=== PATIENT | male | born 1970 | race Caucasian/White ===

== ENCOUNTER 2024-04-03 14:31 | Emergency (ER) | payer OTHER, SELFPAY ==
[2024-04-03 14:36] VITALS: BP 175/108
--- NOTE | 2024-04-03 15:02 | ED.GENMED ---
History of Present Illness
General
Chief Complaint: Abnormal Lab Value
Source: patient
Time Seen by Provider: 04/03/24 14:52
Travel History
Have you had any contact with someone who has COVID-19?: No
Do you have any symptoms of coronavirus? Fever > 100 degrees, chills, cough, shortness of breath, sore throat, loss of taste or smell, muscle aches, or headache?: No
History of Present Illness
History of Present Illness:
53-year-old male presents to the emergency room after being referred here from an urgent care. 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 While there he patient was noted to have a rapid heart rate. Patient denies any
chest pain, shortness of breath, nausea, vomiting. He is not aware of the rapid heart rate. Patient was feeling perfectly himself prior to going to the urgent care. Patient does endorse having anxiety. In he is nervous about getting his license
approved. Patient does have a history of hypertension and diabetes but has been compliant with his medications.
Phy Exam
Physical Exam
Physical Exam:
General: Awake, Alert, Oriented X3. No acute distress, slightly anxious
Vitals: Tachycardic
Head: Atraumatic
Eyes: Pupils equal, EOMI
Throat: Airway intact, no exudates
Neck: Trachea midline
Lungs: Clear and equal b/l
Heart: Regular rate, no murmurs
Abd: Soft, Nontender, No pulsatile mass
Neuro: Nonfocal
Skin: Warm, dry, no rash
Extremities: pulses equal b/l, no edema
Course
Orders/Labs/Results
Orders:
Orders
04/03/24 14:32
EKG [Electrocardiogram (*1)] Urgent
Reason for Study: Tachycardia
EKG- Treatment ONCE
04/03/24 15:22
Complete Blood Count/With Diff Urgent
Comprehensive Metabolic Panel Urgent
TSH Reflex To Free T4 Urgent
04/03/24 17:40
0.9% Sodium Chloride 500 ml [Nss] 500 ml IV BOLUS
Abnormal Lab Results
04/03/24
15:22
WBC 10.9 H 10^3/uL
(4.8-10.8)
Absolute Neuts (auto) 8.4 H 10^3/uL
(1.4-6.5)
Absolute Monos (auto) 0.7 H 10^3/uL
(0.1-0.6)
Neutrophils % 77.0 H %
(42.2-75.2)
Lymphocytes % 15.2 L %
(20.5-51.1)
Chloride 97 L mmol/L
(98-107)
Glucose 222 H mg/dl
(70-99)
04/03/24 15:22
04/03/24 15:22
Vital Signs
Initial and Last Documented VS:
Initial Vital Signs
Temp Pulse Resp BP Pulse Ox
98.1 F 132 18 175/108 98
04/03/24 14:36 04/03/24 14:36 04/03/24 14:36 04/03/24 14:36 04/03/24 14:36
Last Documented Vital Signs
Temp Pulse Resp BP Pulse Ox
98.3 F 109 15 156/91 100
04/03/24 16:00 04/03/24 17:45 04/03/24 17:45 04/03/24 17:30 04/03/24 17:45
MDM/Problems Addressed
Differential Diagnosis Includes:
hyperthyroidism, anxiety, anemia, dehydration
MDM/Problems Addressed:
Patient presents with a sinus tachycardia. His heart rate did come down some with IV fluid and observation. Blood pressure also improved but still moderately elevated. Labs are unremarkable. There is no intervention required at this point but
the patient should follow-up with the family doctor. Patient states he is changing family doctors and does have an appointment on April [address] Ahuja. I think patient stable for discharge and follow-up with him
*Pulse Oximetry
Patient hypoxic: no
*EKG
Interpreted by ED Provider?: Yes
Interpretation: abnormal
Heart Rate: 128
Rate: tachycardiac
Rhythm: sinus tachycardia
[place]: normal axis
Interval: normal interval
QRS Pattern: normal QRS
Ischemia: no ischemia
*Cyber Engineer Interpretation
Rate: tachycardiac
Interpretation: abnormal
Heart Rate: 128
Rhythm: sinus tachycardia
*Critical Care Note
Total Time (30-74mins, 75-104mins- exclusive of procedures): Not Applicable
ED Attending Note
-
Portions of this chart may have been created with voice recognition software.� Occasional wrong word or��sound alike� substitutions may have occurred due to the inherent limitations of voice recognition software.
Discharge Plan
Departure
Patient Disposition: Home (Routine Discharge)
Date of Disposition: 04/03/24
Time of Disposition: 17:54
Patient with high blood pressure during this ER visit?: Yes
Condition: Good
Discharge Problem:
Hypertension, Sinus tachycardia, Dehydration
Instructions: Dehydration, Adult (DC), BLOOD PRESSURE
Prescriptions:
No Action
losartan 50 mg Tablet
50 mg PO QPMPRN PRN (Reason: high blood pressure)
glipizide 5 mg Tablet Extended Release 24hr
5 mg PO QPM
losartan-hydrochlorothiazide 50-12.5 mg Tablet
2 tab PO HS
Patient Comments:
04/03/2024, prescribed for pt. to take one tablet daily but pt. states to take two tablets HS.
cinnamon bark [Cinnamon] 500 mg Capsule
2,000 mg PO DAILY
Janumet 50-1,000 mg Tablet
1 tab PO BID
Stress And Anxiety Pill
3 tab PO HS
Patient Comments:
04/03/2024, OTC from [facility].
apple cider vinegar
2 tab PO DAILY
Referrals:
Polo Lockwood DO [Family Provider] -
Activity Restrictions/Additional Instructions:
I believe your heart rate was high due to a combination of mild dehydration and stress from the office visit. Your heart rate and blood pressure have come down. Please keep your appointment with Dr. Auhja, who I highly recommend. Make sure you
are drinking plenty of fluids to maintain hydration.
Interventions
Interventions:
*Risk Screen - Suicide Last Done: 04/03/24 14:36
*General Assessment Last Done: 04/03/24 15:11
*Neglect/Abuse Screening Last Done: 04/03/24 14:36
ED- Fall Risk Assessment Last Done: 04/03/24 15:11
*ED COVID-19 Vaccine History Last Done: 04/03/24 14:36
*Nursing Disposition Last Done: 04/03/24 18:13
Discharge Date and Time
Discharge Date/Time: 04/03/24 18:20
Print Language: LIBYAN
[2024-04-03 15:09] VITALS: BP 155/92
[2024-04-03 15:11] VITALS: BMI 29.8
[2024-04-03 15:31] LABS: % Basophils 0.6 % (0-2); % Eosinophils 0.3 % (0-6); % Immature Granulocytes 0.4 % (0-0.5); % Lymphocytes 15.2 % (20.5-51.1); % Monocytes 6.5 % (1.7-9.3); Absolute Basophils 0.1 10^3/uL (0-0.2); Absolute Lymphocytes 1.7 10^3/uL (1.2-3.4); Absolute Monocytes 0.7 10^3/uL (0.1-0.6); Absolute Neutrophils 8.4 10^3/uL (1.4-6.5); Hemoglobin 14.3 g/dL (13.0-18.0); Mean Corp Hgb Conc. 34.9 g/dL (33.0-37.0); Mean Corpuscular Hgb 29.4 pg (27.0-31.0); Mean Corpuscular Volume 84.2 fL (80.0-94.0); Mean Platelet Volume 9.6 fL (7.4-10.4); Nucleated Red Blood Cells % 0 % (-); Platelet Count 345 10^3/uL (130-400); Red Blood Cell Count 4.87 10^6/uL (4.70-6.10); Red Cell Dist. Width 12.2 % (11.5-14.5); White Blood Cell Count 10.9 10^3/uL (4.8-10.8)
[2024-04-03 15:59] LABS: ALT (SGPT) 25 U/L (0-50); AST (SGOT) 26 U/L (17-59); Albumin 4.5 g/dl (3.5-5.0); Alkaline Phosphatase 79 U/L (38-126); Blood Urea Nitrogen 18 mg/dl (9-20); Calcium 9.9 mg/dl (8.4-10.2); Carbon Dioxide 28 mmol/L (22-30); Chloride 97 mmol/L (98-107); Estimated Creatinine Clearance > 125 ml/min; Glucose 222 mg/dl (70-99); Potassium 4.5 mmol/L (3.5-5.1); Sodium 136 mmol/L (135-145); Total Bilirubin 0.6 mg/dl (0.2-1.3); Total Protein 7.1 g/dl (6.3-8.2); eGFR > 60.00
[2024-04-03 16:00] VITALS: BP 155/92; BP 159/92
[2024-04-03 16:24] LABS: TSH Reflex To Free T4 0.77 uIU/ml (0.47-4.68)
[2024-04-03 17:00] VITALS: BP 156/85
[2024-04-03 17:30] VITALS: BP 156/91
[2024-04-03] MEDS: NSS 500 IV (17:47)
== END 2024-04-03 18:20 | disposition home or self-care (01) ==
LOC: EMR 14:31
PROVIDERS: EMERGENCY PHYSICIAN Emergency Medicine; FAMILY PHYSICIAN Family Medicine
DX: I10 Essential (primary) hypertension (principal); E86.0 Dehydration; R00.0 Tachycardia, unspecified; F41.9 Anxiety disorder, unspecified; E11.9 Type 2 diabetes mellitus without complications
CPT/HCPCS: 99284; 96360; 80053; 84443; 85025; 93005